=== PATIENT | male | born 1995 | race Caucasian/White ===

== ENCOUNTER 2018-09-27 10:59 | Emergency (ER) | payer OTHER ==
[2018-09-27 11:03] VITALS: BP 123/57
--- NOTE | 2018-09-27 11:16 | EDPHY ---
H & P Time Seen by Provider: 09/27/18 11:07 HPI/ROS: CHIEF COMPLAINT: Left chest wall pain HISTORY OF PRESENT ILLNESS: 12 hr ago patient was wrestling with a friend and got his left arm pain behind his back and heard a pop. He has pain in the left side of his anterior chest medial to his shoulder and below his clavicle. It is worse with internal rotation of his left shoulder. REVIEW OF SYSTEMS: No weakness or numbness in the left hand and no neck or back pain. PAST MEDICAL HISTORY: Negative Social history: Student General Appearance: Alert and conversant, cooperative. Speaks in full sentences. Full range of motion actively and passively of the left shoulder. Nontender over clavicle and deltoid. Normal motor sensory and vascular in the left hand. Skin intact without laceration or bruising. Full sentences with no respiratory distress. Tender to palpation over the lateral aspect of the left pectoralis muscle. Appears symmetric on inspection Emergency Department course/MDM: Declined additional pain medication. Likely acute pectoralis muscle tear or strain. Patient given referral to orthopedics and symptomatic treatment discussed. I think fracture or dislocation is unlikely. Pneumothorax unlikely. Smoking Status: Never smoked Constitutional: Initial Vital Signs Temperature (C) 36.9 C 09/27/18 10:59 Heart Rate 70 09/27/18 10:59 Respiratory Rate 18 09/27/18 10:59 Blood Pressure 123/57 H 09/27/18 10:59 O2 Sat (%) 96 09/27/18 10:59 O2 Delivery Mode Room Air Allergies/Adverse Reactions: No Known Allergies Allergy (Unverified 09/27/18 11:03) Home Medications: Medication Instructions Recorded IBUPROFEN 05/21/16 MDM/Departure - Depart Disposition: Home, Routine, Self-Care Clinical Impression: Strain of left pectoralis muscle Qualifiers: Encounter type: initial encounter Qualified Code(s): S29.011A - Strain of muscle and tendon of front wall of thorax, initial encounter Condition: Good Instructions: Muscle Strain (ED) Additional Instructions: You are likely to have a partial tear of your left pectoralis muscle. Ice to sore area 20 min at a time 3 or 4 times a day for the next week. Okay to use Advil 600 mg by mouth every 8 hr as needed for pain. Follow-up with Orthopedics in the office this week. Stand Alone Forms: School Excuse Referrals: Luca Bonilla MD [Medical Doctor] - 2-3 days, call for appt.
== END 2018-09-27 11:27 | disposition home or self-care (01) ==
DX: S29.011A Strain of muscle and tendon of front wall of thorax, initial encounter (principal); X50.9XXA Other and unspecified overexertion or strenuous movements or postures, initial encounter; Y93.72 Activity, wrestling